=== PATIENT | female | born 1940 | race Hispanic/Latino ===

== ENCOUNTER → 2024-08-12 | Outpatient (REF) | payer MEDICARE | LOC: DX 08:48 | PROVIDERS: ATTEND Nurse Practitioner Family | DX: R19.8 Other specified symptoms and signs involving the digestive system and abdomen (principal) | CPT/HCPCS: 74246; 74250 ==

== ENCOUNTER → 2025-03-11 | Outpatient (REF) | payer MEDICARE ==
[~2025-03-11] MED LIST: DIATRIZOATE MEGL/DIATRIZOA SOD 30 ML BTL PO ONE; IOPAMIDOL 370 MG/ML 100 ML INFUS..BTL INJ ONE
[2025-03-11 16:28] LABS: EST GLOMERULAR FILTRATION RATE 66.0 ML/MIN (>=60)
== END ==
LOC: CT 15:40
PROVIDERS: ATTEND Nurse Practitioner Family
DX: R10.9 Unspecified abdominal pain (principal)
CPT/HCPCS: 36415; 74177; 82565; 84520; Q9963; Q9967